=== PATIENT | male | born 1985 | race Caucasian/White ===

== ENCOUNTER 2019-10-23 09:54 | Emergency (ER) | payer MEDICAID, SELFPAY ==
[2019-10-23 09:58] VITALS: BP 119/80; PULSE 94; RESP 18; TEMP 36.5; O2SAT 100; BMI 19.1
--- NOTE | 2019-10-23 10:13 | XR_ITS ---
PROCEDURE: XR SHOULDER RT MIN 2V CLINICAL INDICATION: PAIN Posttraumatic pain COMPARISON: XR SCAPULA RT from 10/23/2019 XR HUMERUS RT from 10/23/2019 FINDINGS: There is a nondisplaced fracture oriented longitudinal at the base of the greater tubercle of the humeral head. No evidence of dislocation or other significant anomaly. The distal and mid humerus and scapula have an unremarkable appearance. IMPRESSION: Nondisplaced longitudinal fracture at the base of the greater tubercle of the humeral head otherwise negative Dictated by: Britton Souza MD 10/23/2019 12:57 Electronically signed by Britton Souza MD in [place] 10/23/2019 12:57
--- NOTE | 2019-10-23 10:13 | HMH.EDGENADL ---
ED Disposition Clinical Impression: Fracture, humerus, great tuberosity Qualifiers: Encounter type: initial encounter Fracture type: closed Fracture alignment: nondisplaced Laterality: right Qualified Code(s): S42.254A - Nondisplaced fracture of greater tuberosity of right humerus, initial encounter for closed fracture Disposition: Home, Self-Care Condition on Discharge: Good Instructions: How to Use a Sling, DI for Shoulder Fracture Additional Instructions: Use sling until seen by Dr. Demarco. Call tomorrow to make appointment to be seen by Dr. Demarco, orthopedic surgeon. Ice 20 minutes 4-5 times a day to reduce pain and swelling. Additional instructions for CONTROLLED SUBSTANCES: You have been prescribed a medication that is a controlled substance. Controlled substances include pain medications known as opiates and sedative nerve medications known as benzodiazepines. Tramadol, fioricet, and gabapentin are also controlled substances. Some common opiates include: Codeine (such as Tylenol #3) Hydrocodone (Vicodin, Lortab, Lorcet, Pierson) Oxycodone (Percocet, Percodan, Oxycodone, Oxy IR) Some common benzodiazepines include: Diazepam (Valium) Lorazepam (Ativan) Alprazolam (Xanax) Clonazepam (Klonopin) Oxazepam (Serax) All of these controlled substances are highly addictive and frequently abused. Misuse can and frequently does lead to addiction as well as overdose and . Medication should be stored in a locked cabinet or other secure storage unit. Do not store the medication in a motor vehicle. Short term supplies, 3 days or less, are prescribed because of the highly addictive nature of the medication. Any of the controlled substance medication NOT taken should be disposed of properly and NOT SAVED. The recommended method of disposing of unused medications is: Place the medicines in a sealable plastic bag. If the medicine is a solid, crush it or add water to dissolve it. Add something undesirable (cat litter, coffee grounds, etc.) Dispose of sealed bag in household trash Do not flush or pour unused medicines down a sink or drain. Controlled substances should not be shared, given away or sold. Because of the addictive nature and frequent abuse, these medications are sometimes stolen. These medications should be kept in a safe place where they cannot be stolen. Do not keep them in your car or purse. Lost or stolen prescriptions for controlled substances WILL NOT BE REFILLED in this emergency department, regardless of whether a police report was filed. Prescriptions: Hydrocod/Acet 5/325 mg [Pierson 5/325mg tablet] 1 tab PO Q6HP PRN #10 tab PRN Reason: Pain Transmission Status: Sent to [facility] Referrals: Timothy Demarco MD [Staff Physician] - - Critical Care Critical Care Time: No Attestation: On , the high probability of a clinically significant, sudden or life threatening deterioration of the following system(s) required my full and direct attention, intervention and personal management. The time I documented below is in addition to time spent performing reported procedures but includes the following listed in this critical care notation. Medical Decision Making - Medical Records Medical records reviewed: Yes: I reviewed the patient's medical records. - Sheng Inquiry Pt receiving controlled substance: Yes Sheng was queried for this patient: Yes Reference #:: [id number] Risks and benefits of using a controlled substance: were discussed with pt by me Comment: 0 rxs. Vital Signs: 10/23/19 09:58 10/23/19 10:39 Temperature 97.7 F Temperature Source Oral Pulse Rate [Right] 94 H 87 Respiratory Rate 18 18 Blood Pressure [Left Arm] 119/80 127/79 Blood Pressure Mean [Left Arm] 93 95 Blood Pressure Source [Left Arm] Automatic Cuff Automatic Cuff 02 Sat by Pulse Oximetry 100 98 Oxygen Delivery Method Room Air Room Air Orders (Tests/Meds): ED MEDICATIONS Discontinue
[2019-10-23 10:39] VITALS: BP 127/79; PULSE 87; RESP 18; O2SAT 98
[2019-10-23 10:55] VITALS: BP 127/77; PULSE 89; RESP 18; TEMP 36.5; O2SAT 100
== END 2019-10-23 10:48 | disposition home or self-care (01) ==
PROVIDERS: Emergency Provider Emergency Medicine
DX: S42.254A Nondisplaced fracture of greater tuberosity of right humerus, initial encounter for closed fracture (principal); W17.89XA Other fall from one level to another, initial encounter; Y93.51 Activity, roller skating (inline) and skateboarding; Y92.414 Local residential or business street as the place of occurrence of the external cause
CPT/HCPCS: 73010; 73030; 73060; 99283

== ENCOUNTER 2021-11-04 19:42 | Emergency (ER) | payer MEDICAID, SELFPAY ==
[2021-11-04 19:43] VITALS: BP 158/110; PULSE 105; RESP 16; TEMP 36.6; O2SAT 97; BMI 20.6
[2021-11-04 19:46] VITALS: BP 140/94; PULSE 105; PULSE 97; RESP 18; TEMP 36.6; O2SAT 98; BMI 20.6
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
[2021-11-04 20:08] LABS: Chloride 107 mmol/L (98-107); Potassium 4.1 mmoL/L (3.5-5.1); Sodium 143 mmol/L (136-145)
[2021-11-04 20:11] LABS: Alanine Aminotransferase 61 U/L (12-78); Albumin Level 4.7 g/dl (3.5-5.0); Albumin/Globulin Ratio 1.5 (1.1-1.8); Alkaline Phosphatase 65 U/L (38-126); Anion Gap 13.1 mEq/L (5-15); Aspartate Amino Transferase 102 U/L (17-59); Bilirubin,Total 0.5 mg/dl (0.2-1.3); Blood Urea Nitrogen 13 mg/dl (9-20); Carbon Dioxide 27 mmol/L (22.0-30.0); Creatinine Clearance Estimated 106 mL/min (50-200); Estimated Glomerular Filt Rate 110 ml/min (>60); GFR (African American) 133 ML/MIN (>60); Globulin 3.1 g/dL (1.3-3.2); Total Protein,Serum 7.8 g/dl (6.3-8.2)
[2021-11-04 20:12] LABS: Calcium 9.2 mg/dl (8.4-10.2); Glucose 119 mg/dl (74-100)
[2021-11-04 20:22] LABS: Activated Partial Thrombo Time 22.1 seconds (22.8-30.6); INR 0.91 (0.9-1.1); Prothrombin Time 10.4 seconds (10.1-12.5)
--- NOTE | 2021-11-04 21:33 | PC.NURSE ---
Dr. Demarco paged for ED doctor
--- NOTE | 2021-11-04 21:47 | PC.NURSE ---
[facility] hand team to call back
--- NOTE | 2021-11-04 21:59 | PC.NURSE ---
[facility] on phone with Dr. Parikh, ED doctor
--- NOTE | 2021-11-04 22:14 | PC.NURSE ---
facesheet faxed to [facility]
[2021-11-05 00:07] VITALS: BP 140/94; PULSE 105; RESP 18; TEMP 36.6; O2SAT 98
== END 2021-11-05 00:10 | disposition home or self-care (01) ==
PROVIDERS: Emergency Provider Student in an Organized Health Care Education/Training Program
DX: S62.645B Nondisplaced fracture of proximal phalanx of left ring finger, initial encounter for open fracture (principal); S61.213A Laceration without foreign body of left middle finger without damage to nail, initial encounter; S61.215A Laceration without foreign body of left ring finger without damage to nail, initial encounter; S61.217A Laceration without foreign body of left little finger without damage to nail, initial encounter; V29.60XA Unspecified motorcycle rider injured in collision with unspecified motor vehicles in traffic accident, initial encounter; Z23 Encounter for immunization
CPT/HCPCS: 12002; 70450; 71045; 71275; 72125; 72128; 72131; 72170; 73130; 74174; 80053; 85610; 85730; 90471; 90715; 96365; 96367; 99285; Q9967